=== PATIENT | male | born 1950 | race Caucasian/White ===

== ENCOUNTER → 2016-11-01 | Outpatient (CLI) | payer OTHER ==
--- NOTE | 2016-11-01 12:50 | DX ---
Chest, PA and lateral views - November 01, 2016 History: Cough and fever. Findings: Heart size is within normal limits. Calcification is seen in the aorta, indicating atherosc lerotic disease. Pulmonary vascularity appears normal. There is peribronchial wall thickening bilater ally. Increased lung markings are seen at both lower lobes, more predominant at the right lung base, which could represent atelectasis or early infiltrate. No evidence for pleural effusion or pneumothor ax. Impression: Underlying bronchitis and possible early pneumonia or atelectasis at both lower lobes. Results called to Dr. Yohan Youngblood.
== END ==
LOC: BMCIMAGING 12:24
PROVIDERS: ATTEND Emergency Medicine
DX: J40 Bronchitis, not specified as acute or chronic (principal)

== ENCOUNTER → 2016-12-26 | Outpatient (CLI) | payer OTHER | LOC: FIMAGING 11:55 | PROVIDERS: ATTEND Podiatrist Foot & Ankle Surgery | DX: M25.571 Pain in right ankle and joints of right foot (principal); M19.071 Primary osteoarthritis, right ankle and foot ==

== ENCOUNTER → 2018-06-28 | Outpatient (CLI) | payer OTHER | LOC: BMCIMAGING 08:35 | PROVIDERS: ATTEND Physician Assistant | DX: M17.0 Bilateral primary osteoarthritis of knee (principal) ==

== ENCOUNTER → 2019-01-10 | Outpatient (CLI) | payer OTHER | LOC: BMCIMAGING 10:14 | PROVIDERS: ATTEND Physician Assistant | DX: M17.12 Unilateral primary osteoarthritis, left knee (principal) ==